=== PATIENT | male | born 1955 | race Caucasian/White ===

== ENCOUNTER 2021-10-03 16:19 | Inpatient (IN) | payer OTHER, MEDICAID ==
[~2021-10-03] VITALS: Ht 198.1 cm; Wt 90.7 kg
[2021-10-03 16:50] VITALS: BP 177/111
--- NOTE | 2021-10-03 17:43 | NUR ---
pt wheelchair to bed 2
--- NOTE | 2021-10-03 17:51 | NUR ---
66 y/o male, c/o right testicular pain radiates to chest and abd area, pt describes it as a "erupting pain". pt states he has had multiple hernias in the past and repairs. also c/o nausea, vomiting, diarrhea. skin is pink/warm/dry, hand bilaterally red and swollen, pt has lac on right hand, appears healed. a&o x4, unable to ambulate due to location of pain and intensity. lungs clear bl, heart rate even and regular rate 67 pacemaker. pt denies dysuria, hematuria, urinary frequency or retention. pt denies any fever, sob, or cough at this time. pt states pain is 10/10 at this time. patient positioned for comfort. hob elevated. bed down. ermd made aware of pt. pmh: hernia repair, defective mesh removal 2016, CA 2012, pacemaker nka
[2021-10-03] MEDS ORDERED: MORPHINE SULFATE 4 MG/ML SYR IVP ONE (18:10)
[2021-10-03] MEDS ORDERED: ONDANSETRON 4 MG/2 ML VIAL IVP ONE (18:10)
[2021-10-03 18:11] LABS: ALBUMIN 3.6 g/dL (3.4-5.0); ANION GAP 12.1 (8-16); ASPARTATE AMINOTRANSFERASE 33 U/L (15-37); CARBON DIOXIDE 29.1 mmol/L (21-32); CHLORIDE 105 mmol/L (98-107); CREATININE 0.8 mg/dL (0.6-1.3); GFR ARICAN-AMERICAN 124 mL/min (>90); GLUCOSE 119 mg/dL (74-106); MAGNESIUM 2.2 mg/dL (1.8-2.4); PHOSPHORUS 3.6 mg/dL (2.5-4.9); POTASSIUM 4.2 mmol/L (3.5-5.1); SODIUM SERUM 142 mmol/L (136-145); TOTAL BILIRUBIN 2.1 mg/dL (0.0-1.0); UREA NITROGEN, BLOOD 8 mg/dL (7-18)
--- NOTE | 2021-10-03 18:15 | NUR ---
pt taken to ct via eren
--- NOTE | 2021-10-03 18:45 | NUR ---
Ultrasound at bedside. Lab at bedside.
[2021-10-03 18:51] LABS: BASOPHILS % (AUTO) 0.9 % (0.0-2.0); EOSINOPHILS # (AUTO) 0.1 K/uL (0-0.4); EOSINOPHILS % (AUTO) 3.2 % (0.0-4.0); HEMATOCRIT 44.7 % (36-52); HEMOGLOBIN 15.2 g/dL (12.0-18.0); LYMPHOCYTES # (AUTO) 1.2 K/uL (2.0-11.5); LYMPHOCYTES % (AUTO) 26.9 % (20.5-51.1); MEAN CORPUSCULAR HEMOGLOBIN 34 pg (27-31); MEAN CORPUSCULAR HGB CONC 34 g/dL (33-37); MEAN CORPUSCULAR VOLUME 98.5 fL (80-94); MONOCYTES # (AUTO) 0.5 K/uL (0.8-1.0); MONOCYTES % (AUTO) 11.6 % (1.7-9.3); NEUTROPHILS # (AUTO) 2.6 K/uL (1.8-7.7); NEUTROPHILS % (AUTO) 57.4 % (42.2-75.2); PLATELET COUNT (AUTO) 177 K/uL (140-450); RED BLOOD CELL COUNT(AUTO) 4.54 MIL/uL (4.20-6.10); RED CELL DISTRIBUTION WIDTH 14.6 % (11.6-13.7); WHITE BLOOD COUNT (AUTO) 4.6 K/uL (4.8-10.8)
--- NOTE | 2021-10-03 19:15 | NUR ---
RECIEVED REPORT FROM SURENDRA GUTIERREZ
[2021-10-03] MEDS ORDERED: ONDANSETRON 4 MG ODT PO ONE (19:25)
[2021-10-03] MEDS ORDERED: MORPHINE SULFATE 4 MG/ML SYR IM ONE (19:25)
[2021-10-03] MEDS ORDERED: NITROGLYCERIN 0.4 MG TAB SL ONE (20:10)
[2021-10-03] MEDS ORDERED: KETOROLAC 15 MG/ML VIAL IM ONE (20:10)
--- NOTE | 2021-10-03 20:46 | NUR ---
PT RESTING RESP EVEN AND UNLABORED. PT IS MONITOR
[2021-10-03 20:57] LABS: APPEARANCE,URINE CLEAR (CLEAR); BILIRUBIN,URINE 1+ (NEGATIVE); BLOOD, URINE NEGATIVE (NEGATIVE); COLOR,URINE YELLOW (YELLOW); LEUKOCYTE ESTERASE ,URINE NEGATIVE (NEGATIVE); NITRITE, URINE NEGATIVE (NEGATIVE); PH,URINE 7.5 (5.0-9.0); UGLUCOSE NEGATIVE (NEGATIVE)
--- NOTE | 2021-10-03 22:04 | NUR ---
PT WILL BE ADMITTED. PT IS RESTING . RESP EVEN AND UNLABORED
[2021-10-03] MEDS ORDERED: KETOROLAC 15 MG/ML VIAL ONE (22:25)
[2021-10-04] MEDS ORDERED: SODIUM PHOS / POTASSIUM PHOS 1 PKT PDR PO PRN (00:05)
[2021-10-04] MEDS ORDERED: MAGNESIUM OXIDE 400 MG TAB PO PRN (00:05)
[2021-10-04] MEDS ORDERED: DOCUSATE SODIUM 100 MG GELCAP PO PRN (00:05)
[2021-10-04] MEDS ORDERED: POTASSIUM CHLORIDE 10 MEQ TABER PO PRN (00:05)
[2021-10-04] MEDS ORDERED: HYDROcodone/APAP 5/325 MG 1 TAB TAB PO PRN (00:05)
[2021-10-04] MEDS ORDERED: NACL 0.9% 1,000 ML IV SCH (00:05)
[2021-10-04] MEDS ORDERED: ONDANSETRON 4 MG/2 ML VIAL IM/IVP PRN (00:05)
[2021-10-04] MEDS ORDERED: ACETAMINOPHEN 325 MG TAB PO PRN (00:05)
[2021-10-04] MEDS: MORPHINE SULFATE 2 MG/ML SYR IVP PRN ×4 (00:36→15:22)
--- NOTE | 2021-10-04 01:53 | NUR ---
PT IS RESTING COMFORTABLY. VITALS WNL.
[2021-10-04] MEDS ORDERED: ACET-5636 PO (05:08)
--- NOTE | 2021-10-04 05:31 | NUR ---
MED RECONCILE DONE
--- NOTE | 2021-10-04 05:32 | NUR ---
Aime rivas in ED - 10/04/21 at 0533 by MARGARITO PT UP TO BATHROOM WITH ASSIST 1000 OUTPUT URINE.
--- NOTE | 2021-10-04 06:17 | NUR ---
INSTRUMENTATION ENGINEER AT BEDSIDE AM LABS
--- NOTE | 2021-10-04 07:32 | NUR ---
RECIEVED REPORT FROM HAL HAMILTON, RECEIVED PT IN BED, ASLEEP SUPINE, ON O2 3LPM NC, DENIED ANY PAIN AT THIS TIME, RESPIRATIONS EVEN AND UNLABORED, BED LOCKED IN LOWEST POSITION.
[2021-10-04 07:35] LABS: ANION GAP 9.8 (8-16); CARBON DIOXIDE 29.1 mmol/L (21-32); CREATININE 0.9 mg/dL (0.6-1.3); POTASSIUM 3.9 mmol/L (3.5-5.1)
--- NOTE | 2021-10-04 08:23 | NUR ---
MRSA SWAB HANDED TO WHIPPED TOPPING SUPERVISOR
--- NOTE | 2021-10-04 08:24 | NUR ---
PT OFFERED BREAKFAST, HOB ELEVATED, TOLERATED WELL
[2021-10-04] MEDS ORDERED: PANTOPRAZOLE 40 MG TABEC PO SCH (09:00)
[2021-10-04 09:01] LABS: PROTHROMBIN TIME 11.5 secs (10.8-13.4)
[2021-10-04] MEDS ORDERED: lisinopriL 5 MG TAB PO SCH (09:05)
[2021-10-04 09:56] VITALS: BP 137/72
--- NOTE | 2021-10-04 10:45 | NUR ---
DR MAZARIEGOS MADE AWARE OF PT REFUSAL OF LISINOPRIL AND PAIN, ORDERS RECEIVED Addendum: 10/04/21 at [address] IMELDA CHUNG NOT DR MAZARIEGOS
--- NOTE | 2021-10-04 10:46 | NUR ---
PT SATTING 95-96% ON ROOM AIR, O2 REMOVED
--- NOTE | 2021-10-04 10:56 | NUR ---
PT IN BED ASLEEP AT THE TIME
--- NOTE | 2021-10-04 11:21 | NUR ---
PT DESAT WHILE SLEEPING O289% , PLACED BACK ON 02 C 2LPM, SATTING NOW AT 99%
--- NOTE | 2021-10-04 12:27 | NUR ---
DC PLANNING: THE PATIENT PRESENTED TO THE ED WITH C/O WORSENING RIGHT GROIN PAIN,CHEST PAIN, NV AND DYSURIA. H/O PACEMAKER, HERNIA REPAIR, HERNIA REPAIR MESH REMOVAL AND TESTICULAR DESCENT SURGERY. CXR SUGGESTIVE OF COPD, CT ABD/PELVIS SHOWS A CYST OF THE RIGHT LIVE LOBE, BILATERAL RENAL CYSTS, SCROTAL US SHOWS POSSIBLE LESIONS TO RIGHT TESTICLE, SUSPECTED TORSION/DETORSION OF RIGHT TESTICLE, POSSIBLE LEFT TESTICULAR ORCHITIS, LEFT HYDROCELE AND VARIOCELE. ORDERS FOR CARDIOLOGY AND UROLOGY CONSULTS, STARTED ON IVF'S AND PAIN MANAGEMENT PENDING CONSULTS. CM WILL FOLLOW FOR NEEDS.
[2021-10-04] MEDS ORDERED: oxyCODONE/APAP 5/325 MG 1 TAB TAB PO PRN (13:15)
--- NOTE | 2021-10-04 13:50 | NUR ---
PATIENT HAS BEEN SCREENED AND CATEGORIZED LOW NUTRITION RISK. PATIENT WILL BE SEEN WITHIN 7 DAYS OF ADMISSION. 10/10/[address]
--- NOTE | 2021-10-04 14:50 | NUR ---
PT SCREAMING IN HIS ROOM ON THE PHONE. WENT TO SEE WHAT PT NEEDED. PT CONTINUED TO YELL AGGRESSIVELY AT STAFF USING PROFANITY. PT REQUESTING TO BE MOVED TO THE FLOOR IMMEDIATELY, EXPLAINED TO THE PATIENT THAT THERE ARE NO BEDS AVAILABLE AT THIS TIME BUT I AM WORKING ON MOVING HIM GIO. PT CONTINUED TO YELL AND STATED THAT WE ARENT DOING ANYTHING FOR HIM AND WE ARE NOT "FIXING THE PROBLEM". STATED THAT HE WANTED A "MESH" INSERTED IN HIS SCROTUM RIGHT NOW. EXPLAINED TO THE PATIENT THAT IT IS UNDER THE DOCTORS DISCRETION. REASSURED PT THAT WE ARE DOING EVERYTHING WE CAN TO MAKE HIM COMFORTABLE POSSIBLE WHILE AWAITING A BED ON THE FLOOR.
--- NOTE | 2021-10-04 15:35 | NUR ---
CALL LIGHT ANSWERED; PATIENT REQUESTING TO LEAVE FACILITY AMA. PATIENT A&OX4. CHARGE NURSE MADE AWARE.
--- NOTE | 2021-10-04 15:40 | NUR ---
PT IV REMOVED, ALL BELONGINGS WITH PATIENT
--- NOTE | 2021-10-04 15:46 | NUR ---
Patient does not wish to proceed with medical care recommended by DR IMELDA CHUNG. Patient given information related to possible complications, up to and including , which could occur as a result of leaving hospital at this time. Patient verbalizes understanding of risks involved leaving against medical advice. Patient has signed AMA form.
[2021-10-04 23:37] LABS: CHOL/HDL RATIO 2.1 (1-4.5); PHOSPHORUS 4.2 mg/dL (2.5-4.9)
== END 2021-10-04 15:43 | disposition left against medical advice (07) | DRG 729 ==
LOC: MED 16:19 → MTU 20:47
PROVIDERS: ADMIT Hospitalist; ATTEND Hospitalist
DX: N50.82 Scrotal pain (principal); N44.00 Torsion of testis, unspecified; N43.3 Hydrocele, unspecified; I86.1 Scrotal varices; M47.9 Spondylosis, unspecified; K76.89 Other specified diseases of liver; J44.9 Chronic obstructive pulmonary disease, unspecified; Z20.822 Contact with and (suspected) exposure to COVID-19; Z79.891 Long term (current) use of opiate analgesic; Z79.899 Other long term (current) drug therapy; Z79.1 Long term (current) use of non-steroidal anti-inflammatories (NSAID)
CPT/HCPCS: 36415; 71045; 76870; 80048; 80053; 81003; 83605; 83735; 84100; 84484; 85025; 85610; 87081; 93005; 96372; 99285; J1644; J1885; J2270; Q0092; Q0162